=== PATIENT | female | born 1980 | race Caucasian/White ===

== ENCOUNTER 2017-08-25 10:45 | Emergency (ER) | END 2017-08-25 13:37 | disposition home or self-care (01) ==

== ENCOUNTER 2019-04-24 08:33 | Emergency (ER) | payer MEDICAID ==
[~2019-04-24] VITALS: Ht 160 cm; Wt 76.9 kg
[~2019-04-24 08:33] MED LIST: ACET325T33 PO; ACET500C5 PO; AEROCHAMBER; ALBU2.5V3 NEB; ALBU8.5H5 INH; ALBU8.5H8 INH; CIPR500T4 PO; HYDR-4011 PO; IBUP-1542 PO; MONT10TA21 PO; NITR-58 PO; ONDA4TAB14 PO; ONDA8TAB14 PO; PRED20TA PO; TRAM50TA2 PO
[2019-04-24 08:36] VITALS: BP 112/71; PULSE 87; RESP 24; Ht 160 cm; Wt 76.9 kg
[2019-04-24] MEDS ORDERED: ALBUTEROL 0.083% (NEB) 2.5 MG/3 ML AMP HHN STA (09:04)
[2019-04-24] MEDS ORDERED: DEXAMETHASONE 10 MG/ML 1 ML INJ IM ONE (09:30)
[2019-04-24] MEDS ORDERED: IPRATROPIUM (NEB) 0.5 MG/2.5 ML AMP HHN ONE (09:30)
== END 2019-04-24 10:06 | disposition home or self-care (01) ==
LOC: FTE 08:33
DX: J45.901 Unspecified asthma with (acute) exacerbation (principal)
CPT/HCPCS: 94664; 96372; J1100; Z7502; Z7610